=== PATIENT | female | born 1980 | race Caucasian/White ===

== ENCOUNTER 2016-09-06 10:58 | Emergency (ER) | payer BC ==
[~2016-09-06] VITALS: Ht 160 cm; Wt 61.2 kg
[2016-09-06 11:26] VITALS: BP 110/70
[2016-09-06 14:17] LABS: Urine Bilirubin Negative (Negative); Urine Color Yellow (Yellow); Urine Glucose Normal (Normal); Urine Mucus FEW (None Seen); Urine RBC 6 /hpf (0 - 4); Urine Squamous Epithelial Cell FEW /hpf (<5); Urine Urobilinogen Normal (Negative); Urine WBC Clumps PRESENT /hpf (None Seen); Urine pH 5.5 (5.0-8.0)
[2016-09-06 14:18] LABS: Urine Blood 2+ /uL (Negative); Urine Ketone 1+ (Negative); Urine Nitrite POSITIVE (Negative)
[2016-09-06] MEDS ORDERED: PIPERACILLIN-TAZOB 2.25GM 50 ML IV ONE (15:00)
[2016-09-06] MEDS ORDERED: SODIUM CHLORIDE 0.9% 1,000 ML IV ONE ×2 (15:00)
[2016-09-06 15:27] LABS: Basophils # (auto) 0 uL; Basophils % (auto) 0.5 % (0.0-2.0); CONDITION Y; DEFINITIVE SEE PRINTOUT; Eosinophils # (auto) 0 uL; Eosinophils % (auto) 0.1 % (0.0-7.0); Hematocrit 31.4 % (36.0-46.0); Hemoglobin 10.2 g/dL (12.2-16.2); Lymphocytes # (auto) 0.9 uL; Lymphocytes % (auto) 9.4 % (10.0-50.0); Mean Corpuscular Hgb Conc. 32.6 g/dL (32.0-36.0); Mean Corpuscular Volume 67.5 fL (80.0-100.0); Monocytes # (auto) 1.1 uL; Monocytes % (auto) 11.5 % (0.0-12.0); Neutrophils # (auto) 7.6 uL; Neutrophils % (auto) 78.5 % (37.0-80.0); Platelet Count (auto) 234 10^3/uL (140-450); White Blood Cell 9.7 10^3/uL (4.4-10.8)
[2016-09-06 15:38] LABS: Red Cell Distribution Width 23.2 % (11.6-16.0)
[2016-09-06] MEDS ORDERED: IBUPROFEN 800 MG TAB PO ONE (15:45)
[2016-09-06 15:48] LABS: Albumin 3.8 g/dL (3.4-5.0); BUN/Creatinine Ratio 10.3; Bilirubin, Total 0.7 mg/dL (0.2-1.0); Calcium 8.6 mg/dL (8.5-10.1); Potassium 3.5 mmol/L (3.5-5.1)
[2016-09-06 16:00] LABS: Platelet Estimate Adequate
[2016-09-06 16:03] LABS: Burr Cells FEW; Ovalocytes FEW; Polychromasia Slight; Stomatocytes Few; Tear Drop Cells FEW
[2016-09-06 16:04] LABS: Anisocytosis Moderate; Hypochromia Moderate; Microcytosis Marked
[2016-09-06] MEDS ORDERED: cefTRIAXone 1GM/50ML D5W 50 ML IV ONE (17:30)
== END 2016-09-06 18:26 | disposition home or self-care (01) ==
LOC: ER 10:58
DX: N12 Tubulo-interstitial nephritis, not specified as acute or chronic (principal); N39.0 Urinary tract infection, site not specified
CPT/HCPCS: 36415; 74176; 80053; 81001; 81025; 84702; 85025; 87040; 96365; 96366; 96367; 99285; J0696; J2543; J7030